=== PATIENT | female | born 1965 | race American Indian/Alaskan Native ===

== ENCOUNTER 2018-01-05 12:47 | Emergency (ER) | payer SELFPAY ==
[2018-01-05 13:05] VITALS: BP 141/78
--- NOTE | 2018-01-05 14:31 | Emergency Department Report ---
ED ENT HPI - General Chief complaint: Dental/Oral Stated complaint: TOOTH INFECTION Time Seen by Provider: 01/05/18 14:22 Source: patient Mode of arrival: Ambulatory Limitations: No Limitations - History of Present Illness Initial comments: Patient is a 52-year-old [place] female with 3 days of of right jaw swelling and pain. Patient states that she has a tooth that has not been feeling well for some time but the swelling and pain has intensified. Patient denies any problems swallowing or fevers chills nausea vomiting diarrhea at this time. Patient states pain is 8 out of 10 in severity. - Related Data Previous Rx's Medication Instructions Recorded Last Taken Type Aspirin [Aspirin BABY CHEW TAB] 81 mg PO QDAY #30 tab.chew 01/24/15 1 Week Ago Rx ~05/15/15 Ibuprofen [Motrin] 600 mg PO Q8H PRN #30 tablet 05/22/15 Unknown Rx traMADol [Ultram 50 MG tab] 50 mg PO Q6HR PRN #20 tablet 05/22/15 Unknown Rx HYDROcodone/APAP 5-325 [[place] 1 each PO Q6HR PRN #30 tablet 08/25/15 Unknown Rx 5/325] amLODIPine [Norvasc] 10 mg PO DAILY tablet 08/25/15 Unknown Rx levoFLOXacin [Levaquin TAB] 500 mg PO QDAY #10 tablet 08/25/15 Unknown Rx Clindamycin [Clindamycin CAP] 300 mg PO Q8H 7 Days cap 01/05/18 Unknown Rx HYDROcodone/APAP 5-325 [[place] 1 each PO Q4HR PRN #12 tablet 01/05/18 Unknown Rx 5/325] Ibuprofen [Motrin] 800 mg PO Q8HR PRN #20 tablet 01/05/18 Unknown Rx Allergies Allergy/AdvReac Type Severity Reaction Status Date / Time No Known Allergies Allergy Verified 08/24/15 17:34 ED Dental HPI - General Chief complaint: Dental/Oral Stated complaint: TOOTH INFECTION Time Seen by Provider: 01/05/18 14:22 Source: patient Mode of arrival: Ambulatory Limitations: No Limitations - Related Data Previous Rx's Medication Instructions Recorded Last Taken Type Aspirin [Aspirin BABY CHEW TAB] 81 mg PO QDAY #30 tab.chew 01/24/15 1 Week Ago Rx ~05/15/15 Ibuprofen [Motrin] 600 mg PO Q8H PRN #30 tablet 05/22/15 Unknown Rx traMADol [Ultram 50 MG tab] 50 mg PO Q6HR PRN #20 tablet 05/22/15 Unknown Rx HYDROcodone/APAP 5-325 [[place] 1 each PO Q6HR PRN #30 tablet 08/25/15 Unknown Rx 5/325] amLODIPine [Norvasc] 10 mg PO DAILY tablet 08/25/15 Unknown Rx levoFLOXacin [Levaquin TAB] 500 mg PO QDAY #10 tablet 08/25/15 Unknown Rx Clindamycin [Clindamycin CAP] 300 mg PO Q8H 7 Days cap 01/05/18 Unknown Rx HYDROcodone/APAP 5-325 [[place] 1 each PO Q4HR PRN #12 tablet 01/05/18 Unknown Rx 5/325] Ibuprofen [Motrin] 800 mg PO Q8HR PRN #20 tablet 01/05/18 Unknown Rx Allergies Allergy/AdvReac Type Severity Reaction Status Date / Time No Known Allergies Allergy Verified 08/24/15 17:34 ED Review of Systems ROS: Stated complaint: TOOTH INFECTION Other details as noted in HPI Comment: All other systems reviewed and negative ED Past Medical Hx - Past Medical History Hx Hypertension: Yes Hx CVA: Yes (01/2015) Hx HIV: No - Surgical History Additional Surgical History: c/s - Social History Smoking Status: Current Every Day Smoker Substance Use Type: None - Medications Home Medications: Home Medications Medication Instructions Recorded Confirmed Last Taken Type Aspirin [Aspirin BABY CHEW TAB] 81 mg PO QDAY #30 tab.chew 01/24/15 05/22/15 1 Week Ago Rx ~05/15/15 Ibuprofen [Motrin] 600 mg PO Q8H PRN #30 tablet 05/22/15 Unknown Rx traMADol [Ultram 50 MG tab] 50 mg PO Q6HR PRN #20 tablet 05/22/15 Unknown Rx HYDROcodone/APAP 5-325 [[place] 1 each PO Q6HR PRN #30 tablet 08/25/15 Unknown Rx 5/325] amLODIPine [Norvasc] 10 mg PO DAILY tablet 08/25/15 Unknown Rx levoFLOXacin [Levaquin TAB] 500 mg PO QDAY #10 tablet 08/25/15 Unknown Rx Clindamycin [Clindamycin CAP] 300 mg PO Q8H 7 Days cap 01/05/18 Unknown Rx HYDROcodone/APAP 5-325 [[place] 1 each PO Q4HR PRN #12 tablet 01/05/18 Unknown Rx 5/325] Ibuprofen [Motrin] 800 mg PO Q8HR PRN #20 tablet 01/05/18 Unknown Rx ED Physical Exam - General Limitations: No Limitations General appearance: alert, in no apparent distress - Head Head exam: Present: atraumatic, normocephalic - Eye Eye exam: Present: normal appearance - ENT ENT exam: Present: mucous membranes moist, other (patient has tenderness to palpation at the area of tooth 32. Patient is tooth is worn down to level of the gumline there is some necrosis. Patient has some facial cellulitis present as well) - Neck Neck exam: Present: normal inspection - Respiratory Respiratory exam: Present: normal lung sounds bilaterally. Absent: respiratory distress - Cardiovascular Cardiovascular Exam: Present: regular rate, normal rhythm. Absent: systolic murmur, diastolic murmur, rubs, gallop - GI/Abdominal GI/Abdominal exam: Present: soft, normal bowel sounds - Extremities Exam Extremities exam: Present: normal inspection - Back Exam Back exam: Present: normal inspection - Neurological Exam Neurological exam: Present: alert, oriented X3 - Psychiatric Psychiatric exam: Present: normal affect, normal mood - Skin Skin exam: Present: warm, dry, intact, normal color. Absent: rash ED Course Vital Signs 01/05/18 13:03 Temperature 98.7 F Pulse Rate 71 Respiratory 16 Rate Blood Pressure 141/78 O2 Sat by Pulse 100 Oximetry Critical care attestation.: If time is entered above; I have spent that time in minutes in the direct care of this critically ill patient, excluding procedure time. ED Disposition Clinical Impression: Facial cellulitis, Dental abscess Disposition: TO HOME OR SELFCARE Is pt being admited?: No Condition: Stable Instructions: Dental Abscess (ED) Additional Instructions: Please follow up with the dentist of your choice Referrals: PRIMARY CARE, [Primary Care Provider] - 3-5 Days Time of Disposition: 14:30
== END 2018-01-05 14:30 | disposition home or self-care (01) ==
LOC: ED 12:47
DX: L03.211 Cellulitis of face (principal); K04.7 Periapical abscess without sinus; I10 Essential (primary) hypertension; F17.200 Nicotine dependence, unspecified, uncomplicated; Z86.73 Personal history of transient ischemic attack (TIA), and cerebral infarction without residual deficits; Z79.899 Other long term (current) drug therapy
CPT/HCPCS: 99282

== ENCOUNTER 2020-10-29 11:45 | Emergency (ER) | payer SELFPAY ==
[2020-10-29 12:01] VITALS: BP 173/90
--- NOTE | 2020-10-29 14:30 | Emergency Department Report ---
Chief Complaint: Skin/Abscess/Foreign Body Stated Complaint: lump under arm Time Seen by Provider: 10/29/20 14:24 - HPI History of Present Illness: 55-year-old female patient presents to the emergency department with complaints of swelling in her left axillary region for 2 months. Symptoms are unchanged today. The area is not painful. There is no preceding fall, trauma, or injury. Patient has not consulted an outpatient provider for this concern. She has never undergone a mammogram. She has no known history of breast or ovarian cancer. Denies fever, chills, redness, warmth, purulent drainage. Denies all other complaints at this time. - ROS Review of Systems: GENERAL: Negative for fever. CARDIOVASCULAR: Negative for chest pain. PULMONARY: Negative for shortness of breath. GASTROINTESTINAL: Negative for abdominal pain. MUSCULOSKELETAL: Negative for back pain. NEUROLOGICAL: Negative for headache. INTEGUMENTARY: Positive for swelling. - Exam Vital Signs: Vital Signs 10/29/20 11:59 Temperature 98.2 F Pulse Rate 66 Respiratory 18 Rate Blood Pressure 173/90 [Right] O2 Sat by Pulse 100 Oximetry Physical Exam: General: Awake, appropriately interactive, no acute distress. Neck: Supple. Full range of motion intact. Cardiovascular: Normal peripheral perfusion. Pulmonary: No respiratory distress. Patient is speaking normally without use of accessory muscles. Skin: Oval-shaped firm subcutaneous mass to the left axillary/left upper quadrant of the left breast, non-mobile, non-tender, no overlying warmth or e rythema, no purulent drainage. Neurological: No facial asymmetry. Speech is clear. Follows commands. Patient is alert and oriented. Musculoskeletal: Moves all four extremities spontaneously with normal range of motion. Psych: Cooperative. Appropriate mood and affect. MSE screening note: Focused history and physical exam performed. Due to findings the following was ordered: ED Medical Decision Making - Medical Decision Making 55-year-old female patient presents to the emergency department for evaluation of painless swelling under her left arm for 2 months. She is afebrile. Vital signs are stable. There is no clinical evidence to suggest bacterial infection warranting further diagnostic work-up on an emergent basis at this time. Patient will be referred to both primary care provider and breast specialist in an effort to expedite arrangements for outpatient mammogram. Patient expressed understanding and is agreeable to plan of care. Strict return precautions provided. BILLING/CODING: This patient encounter does not represent a certified medical emergency. ED Disposition for MSE Clinical Impression: Left axillary swelling Disposition: MED SCREENING EXAM-LEFT Is pt being admited?: No Does the pt Need Aspirin: No Condition: Stable Instructions: Mammogram, Breast Self-Awareness, [id number] Additional Instructions: Follow-up with primary care provider and/or breast specialist for further evaluation. Call today to schedule an appointment. See referral information below. Return to the emergency department immediately for new or worsening symptoms. Referrals: RHYS MINOR MD [Staff Physician] - 3-[address] [facility] [Provider Group] - 3-5 Days LOBO MITCHELL MD [Staff Physician] - 3-5 Days Time of Disposition: 14:31
== END 2020-10-29 15:15 | disposition left against medical advice (07) ==
LOC: ED 11:45
DX: R22.32 Localized swelling, mass and lump, left upper limb (principal); R07.89 Other chest pain; Z53.21 Procedure and treatment not carried out due to patient leaving prior to being seen by health care provider

== ENCOUNTER 2021-03-09 12:21 | Inpatient (IN) | payer SELFPAY ==
[2021-03-09] MEDS ORDERED: hydrALAZINE 20 MG/1 ML INJ IV ONE ×2 (12:53→20:36)
--- NOTE | 2021-03-09 12:58 | Emergency Department Report ---
HPI - General Chief Complaint: Dizziness Time Seen by Provider: 03/09/21 12:44 - HPI HPI: 55-year-old -[place] female presents to the emergency department with complaint of a 2 to 3-day history of dizziness and some blurry vision. The patient says that it started after she ate some chips a few days ago. She realizes that they are were very salty and has concerned about her blood pressure. She does have a history of hypertension and does present with some elevated/uncontrolled blood pressure. The patient admits to medication noncompliance. She also has a history of a previous CVA without residual deficits. She also is a tobacco smoker. She denies any illicit drug use. She denies any facial asymmetry, weakness, chest pain, fever, numbness or paresthesias, slurred speech, shortness of breath. She describes the dizziness as if she might pass out when walking. No recent travel or sick contacts at home. The patient has not taken anything for symptoms prior to presentation today. ED Past Medical Hx - Past Medical History Previous Medical History?: Yes Hx Hypertension: Yes Hx CVA: Yes (01/2015) Hx HIV: No - Surgical History Past Surgical History?: Yes Additional Surgical History: c/s - Social History Smoking Status: Current Every Day Smoker Substance Use Type: None - Medications Home Medications: Home Medications Medication Instructions Recorded Confirmed Last Taken Type Aspirin [Aspirin BABY CHEW TAB] 81 mg PO QDAY #30 tab.chew 03/11/21 Unknown Rx AtorvaSTATin [Lipitor] 40 mg PO QHS #30 tab 03/11/21 Unknown Rx amLODIPine 10 mg PO DAILY #30 tablet 03/11/21 Unknown Rx carvediloL [Coreg] 6.25 mg PO BID #60 tablet 03/11/21 Unknown Rx ED Review of Systems ROS: Stated complaint: STUMBLING, CANT SEE, HIGH BLOOD PRESSURE Other details as noted in HPI Comment: All other systems reviewed and negative Constitutional: denies: chills, fever Eyes: vision change (blurry). denies: eye pain ENT: denies: ear pain, throat pain Respiratory: denies: cough, shortness of breath Cardiovascular: denies: chest pain, palpitations Gastrointestinal: denies: abdominal pain, vomiting Genitourinary: denies: dysuria, discharge Musculoskeletal: denies: back pain, arthralgia Skin: denies: rash, lesions Neurological: denies: weakness, numbness, paresthesias Physical Exam - Physical Exam Vital Signs: Vital Signs 03/09/21 12:32 Temperature 98.1 F Pulse Rate 67 Respiratory 16 Rate Blood Pressure 185/74 [Left] O2 Sat by Pulse 95 Oximetry Physical Exam: GENERAL: The patient is well-developed well-nourished. HENT: Normocephalic. Atraumatic. Patient has moist mucous membranes. EYES: Extraocular motions are intact. NECK: Supple. Trachea is midline. CHEST/LUNGS: Clear to auscultation. There is no respiratory distress noted. HEART/CARDIOVASCULAR: Regular. There is no tachycardia. There is no murmur. ABDOMEN: Abdomen is soft, nontender. Patient has normal bowel sounds. There is no abdominal distention. SKIN: Skin is warm and dry. NEURO: The patient is awake, alert, and oriented. The patient is cooperative. No facial asymmetry. No pronator drift or dysmetria. Normal speech. Unstable gait. MUSCULOSKELETAL: There is no tenderness or deformity. There is no limitation range of motion. ED Course Vital Signs 03/09/21 12:32 Temperature 98.1 F Pulse Rate 67 Respiratory 16 Rate Blood Pressure 185/74 [Left] O2 Sat by Pulse 95 Oximetry ED Medical Decision Making - Lab Data Result diagrams: 03/10/21 03:39 03/10/21 03:39 Lab Results 03/09/21 03/09/21 03/09/21 Range/Units 14:44 14:44 14:44 WBC 4.8 (4.5-11.0) K/mm3 RBC 3.52 L (3.65-5.03) M/mm3 Hgb 11.6 (10.1-14.3) gm/dl Hct 34.0 (30.3-42.9) % MCV 97 (79-97) fl MCH 33 H (28-32) pg MCHC 34 (30-34) % RDW 13.6 (13.2-15.2) % Plt Count 178 (140-440) K/mm3 Lymph % (Auto) 38.0 H (13.4-35.0) % [place] % (Auto) 9.7 H (0.0-7.3) % Eos % (Auto) 1.6 (0.0-4.3) % Baso % (Auto) 0.9 (0.0-1.8) % Lymph # (Auto) 1.8 (1.2-5.4) K/mm3 [place] # (Auto) 0.5 (0.0-0.8) K/mm3 Eos # (Auto) 0.1 (0.0-0.4) K/mm3 Baso # (Auto) 0.0 (0.0-0.1) K/mm3 Seg Neutrophils % 49.8 (40.0-70.0) % Seg Neutrophils # 2.4 (1.8-7.7) K/mm3 Sodium 140 (137-145) mmol/L Potassium 3.9 (3.6-5.0) mmol/L Chloride 105.5 (98-107) mmol/L Carbon Dioxide 24 (22-30) mmol/L Anion Gap 14 mmol/L BUN 11 (7-17) mg/dL Creatinine 0.8 (0.6-1.2) mg/dL Estimated GFR > 60 ml/min BUN/Creatinine Ratio 14 % Glucose 89 (65-100) mg/dL Calcium 9.2 (8.4-10.2) mg/dL Total Bilirubin 0.40 (0.1-1.2) mg/dL AST 9 (5-40) units/L ALT < 5 L (7-56) units/L Alkaline Phosphatase 74 (35-129) units/L Troponin T < 0.010 (0.00-0.029) ng/mL Total Protein 6.9 (6.3-8.2) g/dL Albumin 3.5 L (3.9-5) g/dL Albumin/Globulin Ratio 1.0 % TSH 0.996 (0.270-4.200) mlU/mL - EKG Data -: EKG Interpreted by Mt EKG shows normal: sinus rhythm, axis, intervals, QRS complexes (LVH), ST-T waves Rate: bradycardia (54 bpm) - EKG Data When compared to previous EKG there are: no significant change Interpretation: unchanged when compared t (08/25/15) - Radiology Data Radiology results: report reviewed CT HEAD WITHOUT CONTRAST INDICATION / CLINICAL INFORMATION: Dizziness. TECHNIQUE: All CT scans at this location are performed using CT dose reduction for ALARA by means of automated exposure control. COMPARISON: None available. FINDINGS: There is no acute intracranial hemorrhage, mass effect, or edema. No extra-axial collection or hydrocephalus. Hypodensity in the left basal ganglia extending into ahuja radiata compatible with chronic infarction. Additional tiny hypodensities in the right basal ganglia likely representing chronic lacunar infarcts as well. The paranasal sinuses and mastoid air cells are clear. Calvarium is intact. IMPRESSION: 1. No CT evidence of acute abnormality. 2. Chronic ischemic changes as above. CT angio neck INDICATION / CLINICAL INFORMATION: 55 years Female; Concern for posterior circulation CVA. TECHNIQUE: Thin cut axial images obtained through the head during IV bolus contrast administration. Sagittal, coronal, and 3 plane MIP reconstructions performed by the technologist. NASCET type criteria used evaluate stenoses. All CT scans at this location are performed using CT dose reduction for ALARA by means of automated exposure control. COMPARISON: None available. FINDINGS: CAROTID ARTERIES: The motion and beam hardening significantly degrades the image quality, unfortunately most prominent near the carotid bifurcations. However, there is no clear evidence of significant stenosis involving the carotid bifurcations are visualized proximal internal carotid arteries by NASCET criteria. The mid to distal ICAs are not included on this exam and will be evaluated on the CTA head. VERTEBRAL ARTERIES: There is no significant stenosis involving visualized cervical vertebral arteries. ARCH: There is mild calcification involving aortic arch. However, there is no signif icant stenosis of the arch vessels. ADDITIONAL FINDINGS: There are scattered a cervical lymph nodes, particularly along the jugular chains, greater on the right. Additionally, there are also nodes seen within the visualized mediastinum with a right paratracheal node measuring possibly 1 cm in short axis dimension. There also appears be more prominent nodes within the aortopulmonary window and correlation would be needed. IMPRESSION: The study is limited by motion. However, there is no clear CTA evidence of significant stenosis involving visualized cervical carotid or vertebral arteries by NASCET to criteria CT angio head INDICATION / CLINICAL INFORMATION: 55 years Female; Concern for posterior circulation CVA. TECHNIQUE: Thin cut axial images obtained through the head during IV bolus contrast administration. Sagittal, coronal, and 3 plane MIP reconstructions performed by the technologist. NASCET type criteria used evaluate stenoses. Automated exposure control utilized for radiation reduction purposes. COMPARISON: None available. FINDINGS: INTERNAL CAROTID ARTERIES: There is mild irregularity of the distal internal carotid arteries indicative of mild atherosclerotic disease. However, there is no significant focal stenosis by NASCET criteria. VERTEBROBASILAR SYSTEM: The vertebrobasilar system also demonstrates appropriate caliber without significant focal stenosis. CEREBRAL ARTERIES: There is no significant focal stenosis involving proximal cerebral arteries or adjacent segments. ANEURYSM: The findings appear most consistent with a prominent infundibulum of the right posterior to indicating artery measuring approximately 3 mm transversely. This finding is triangular in shape with the right posterior communicating artery emanating from the apex. The left posterior communicating artery is less well-defined though it there also appears to be developmental infundibulum. Otherwise, there is no clear CT evidence of intracranial aneurysm. 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 There is notable significant focal stenosis involving the posterior superior sagittal sinus at the level the parieto-occipital junction. IMPRESSION: There is no CTA evidence of large vessel occlusion. 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 - Medical Decision Making This patient presents with a 2-day history of some dizziness, feeling off balance when walking, blurry vision and a headache. She denies any slurred speech, numbness or paresthesias, focal weakness, chest pain, fever. On examination the patient initially has an NIH stroke scale of 0. She is outside of the window for TPA or even thrombectomy, so a code stroke was not initiated. However, later, when the patient was tested for ambulation, the patient has an unstable gait and has increased dizziness. Initially the patient has a very elevated blood pressure but it does come down to a more reasonable level without any antihypertensive medication given. CT of the head without contrast did not show any bleed, large vessel occlusion, or any other acute process. Labs thus far have been unremarkable including CBC, metabolic panel, negative troponin, and normal thyroid function. A CT angiography of the head and neck has been ord ered. This will be signed out to my colleague, Dr Tipton, to follow with the results and assist with disposition. The patient will be presented to the admitting hospitalist. Critical Care Time: No Critical care attestation.: If time is entered above; I have spent that time in minutes in the direct care of this critically ill patient, excluding procedure time. ED Disposition Clinical Impression: Tobacco use disorder, Noncompliance with medication regimen HTN (hypertension) Qualifiers: Hypertension type: unspecified Qualified Code(s): I10 - Essential (primary) hypertension CVA (cerebral vascular accident) Qualifiers: CVA mechanism: unspecified Qualified Code(s): I63.9 - Cerebral infarction, unspecified Disposition: 09 ADMITTED INPATIENT Is pt being admited?: Yes Condition: Serious - Assessment Assessment Interval: Baseline - Level of Consciousness 1a. Level of Consciousness: alert/keenly responsive - LOC Questions 1b. LOC Questions: answers both correctly - LOC Command 1c. LOC Commands: performs tasks correctly - Best Gaze 2. Best Gaze: normal - Visual 3. Visual: no visual loss - Facial Palsy 4. Facial Palsy: normal symmetrical movement - Motor Arm 5a. Motor Arm Left: no drift 5b. Motor Arm Right: no drift - Motor Leg 6a. Motor Leg Left: no drift 6b. Motor Leg Right: no drift - Limb Ataxia 7. Limb Ataxia: absent - Sensory 8. Sensory: normal - Best Language 9. Best Language: no aphasia - Dysarthria 10. Dysarthria: normal - Extinction and Inattention 11. Extinction/Inattention: no abnormality - Scoring Total Score: 0 Stroke Severity: No Stroke Symptoms
--- NOTE | 2021-03-09 14:33 | Cat Scan Report ---
CT HEAD WITHOUT CONTRAST INDICATION / CLINICAL INFORMATION: Dizziness. TECHNIQUE: All CT scans at this location are performed using CT dose reduction for ALARA by means of automated exposure control. COMPARISON: None available. FINDINGS: There is no acute intracranial hemorrhage, mass effect, or edema. No extra-axial collection or hydroc ephalus. Hypodensity in the left basal ganglia extending into ahuja radiata compatible with chronic infarction. Additional tiny hypodensities in the right basal ganglia likely representing chronic lacu jayro infarcts as well. The paranasal sinuses and mastoid air cells are clear. Calvarium is intact. IMPRESSION: 1. No CT evidence of acute abnormality. 2. Chronic ischemic changes as above. Signer Name: Jam Lott MD Signed: 03/09/2021 2:29 PM Workstation Name: [id number]
[2021-03-09 15:02] LABS: Basophils % (Auto) 0.9 % (0.0-1.8); Eosinophils # (Auto) 0.1 K/mm3 (0.0-0.4); Eosinophils % (Auto) 1.6 % (0.0-4.3); Hemoglobin 11.6 gm/dl (10.1-14.3); Lymphocytes # (Auto) 1.8 K/mm3 (1.2-5.4); Mean Corpuscular HGB Conc 34 % (30-34); Mean Corpuscular Volume 97 fl (79-97); Monocytes # (Auto) 0.5 K/mm3 (0.0-0.8); Monocytes % (Auto) 9.7 % (0.0-7.3); Platelet Count 178 K/mm3 (140-440); Red Blood Count 3.52 M/mm3 (3.65-5.03); Red Cell Distribution Width 13.6 % (13.2-15.2)
[2021-03-09] MEDS ORDERED: traMADol 50 MG TAB PO ONE (15:03)
[2021-03-09 15:16] LABS: Albumin 3.5 g/dL (3.9-5); BUN/Creatinine Ratio 14; Blood Urea Nitrogen 11 mg/dL (7-17); Calcium 9.2 mg/dL (8.4-10.2); Hemolysis Index 3
[2021-03-09 15:17] LABS: Alanine Aminotransferase < 5 units/L (7-56)
[2021-03-09] MEDS ORDERED: ASPIRIN 81 MG TAB CHEW PO ONE (15:34)
--- NOTE | 2021-03-09 17:48 | Cat Scan Report ---
CT angio neck INDICATION / CLINICAL INFORMATION: 55 years Female; Concern for posterior circulation CVA. TECHNIQUE: Thin cut axial images obtained through the head during IV bolus contrast administration. S agittal, coronal, and 3 plane MIP reconstructions performed by the technologist. NASCET type criteria used evaluate stenoses. All CT scans at this location are performed using CT dose reduction for ALAR A by means of automated exposure control. COMPARISON: None available. FINDINGS: CAROTID ARTERIES: The motion and beam hardening significantly degrades the image quality, unfortunate ly most prominent near the carotid bifurcations. However, there is no clear evidence of significant s tenosis involving the carotid bifurcations are visualized proximal internal carotid arteries by NASCE T criteria. The mid to distal ICAs are not included on this exam and will be evaluated on the CTA mitchella d. VERTEBRAL ARTERIES: There is no significant stenosis involving visualized cervical vertebral arteries . ARCH: There is mild calcification involving aortic arch. However, there is no significant stenosis of the arch vessels. ADDITIONAL FINDINGS: There are scattered a cervical lymph nodes, particularly along the jugular chain s, greater on the right. Additionally, there are also nodes seen within the visualized mediastinum wi th a right paratracheal node measuring possibly 1 cm in short axis dimension. There also appears be m ore prominent nodes within the aortopulmonary window and correlation would be needed. IMPRESSION: The study is limited by motion. However, there is no clear CTA evidence of significant stenosis invol ving visualized cervical carotid or vertebral arteries by NASCET to criteria. There was delay in the dictation of this exam in that the initial study was incomplete and was dictat ed on an emergent basis once corrected at 4:43 PM Central standard time. Signer Name: Ar Lorenzo MD Signed: 03/09/2021 5:44 PM Workstation Name: [id number]
--- NOTE | 2021-03-09 18:42 | Cat Scan Report ---
CT angio head INDICATION / CLINICAL INFORMATION: 55 years Female; Concern for posterior circulation CVA. TECHNIQUE: Thin cut axial images obtained through the head during IV bolus contrast administration. S agittal, coronal, and 3 plane MIP reconstructions performed by the technologist. NASCET type criteria used evaluate stenoses. Automated exposure control utilized for radiation reduction purposes. COMPARISON: None available. FINDINGS: INTERNAL CAROTID ARTERIES: There is mild irregularity of the distal internal carotid arteries indicat mainor of mild atherosclerotic disease. However, there is no significant focal stenosis by NASCET criter ia. VERTEBROBASILAR SYSTEM: The vertebrobasilar system also demonstrates appropriate caliber without sign ificant focal stenosis. CEREBRAL ARTERIES: There is no significant focal stenosis involving proximal cerebral arteries or adj acent segments. ANEURYSM: The findings appear most consistent with a prominent infundibulum of the right posterior to indicating artery measuring approximately 3 mm transversely. This finding is triangular in shape wit h the right posterior communicating artery emanating from the apex. The left posterior communicating artery is less well-defined though it there also appears to be developmental infundibulum. Otherwise, there is no clear CT evidence of intracranial aneurysm. 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 There is notable significant focal stenosis involving the posterior superior sa gittal sinus at the level the parieto-occipital junction. IMPRESSION: There is no CTA evidence of large vessel occlusion. 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 There was significant delay in the dictation of this exam in that the initial study was incomplete an d was dictated on an emergent basis at 5:36 PM once corrected. Signer Name: Ar Lorenzo MD Signed: 03/09/2021 6:37 PM Workstation Name: [id number]
[2021-03-09] MEDS ORDERED: ALUM-MAG HYDROXIDE-SIMETHICONE 200-200-20MG/5ML ORAL LIQD 30 ML PO PRN (21:06)
[2021-03-09] MEDS ORDERED: MORPHINE 2 MG/1 ML INJ IV PRN (21:06)
[2021-03-09] MEDS ORDERED: SENNOSIDES 8.6 MG TAB PO PRN (21:06)
[2021-03-09] MEDS ORDERED: oxyCODONE /ACETAMINOPHEN 5-325MG TAB PO PRN (21:06)
[2021-03-09] MEDS ORDERED: NALOXONE 0.4 MG/1 ML INJ IV PRN (21:06)
[2021-03-09] MEDS ORDERED: MAGNESIUM HYDROXIDE (MOM) ORAL LIQD UDC PO PRN (21:06)
[2021-03-09] MEDS ORDERED: MORPHINE 4 MG/1 ML INJ IV PRN (21:06)
[2021-03-09] MEDS ORDERED: traMADol 50 MG TAB PO PRN (21:09)
[2021-03-09] MEDS ORDERED: hydrALAZINE 20 MG/1 ML INJ IV PRN (21:10)
--- NOTE | 2021-03-09 21:15 | History and Physical Report ---
History of Present Illness Date of examination: 03/09/21 Date of admission: 03/09/21 Chief complaint: dizziness and light headedness History of present illness: This is a 55-year-old -[place] female seen in ED at bedside. She presents to the emergency department with complaint of a 2 to 3-day history of dizziness and some blurry vision. patient reports a history of hypertension and CVA and present with some elevated/uncontrolled blood pressure. Per ED record- patient says that it started after she ate some chips a few days ago. The patient admits to medication noncompliance, tobacco use,but denies chronic alcohol use and illicit drug use. She denies any facial asymmetry, weakness, chest pain, fever, numbness or paresthesias, slurred speech, shortness of breath. She describes the dizziness as if she might pass out when walking. CT of the neck showed no clear evidence of significant stenosis involving cervical carotid or ventral brawl arteries. CT of the head done which showed no CT evidence of acute abnormality but showed a chronic ischemic changes. Past History Past Medical History: hypertension, stroke Past Surgical History: No surgical history Social history: lives with family, smoking, full code. denies: alcohol abuse, prescription drug abuse, IV drug use Family history: no significant family history Medications and Allergies Allergies Allergy/AdvReac Type Severity Reaction Status Date / Time No Known Allergies Allergy Verified 08/24/15 17:34 Home Medications Medication Instructions Recorded Confirmed Last Taken Type Aspirin [Aspirin BABY CHEW TAB] 81 mg PO QDAY #30 tab.chew 01/24/15 05/22/15 1 Week Ago Rx ~05/15/15 Ibuprofen [Motrin] 600 mg PO Q8H PRN #30 tablet 05/22/15 Unknown Rx traMADoL [Ultram 50 MG tab] 50 mg PO Q6HR PRN #20 tablet 05/22/15 Unknown Rx HYDROcodone/APAP 5-325 [[place] 1 each PO Q6HR PRN #30 tablet 08/25/15 Unknown Rx 5/325] amLODIPine 10 mg PO DAILY tablet 08/25/15 Unknown Rx levoFLOXacin [Levaquin TAB] 500 mg PO QDAY #10 tablet 08/25/15 Unknown Rx Clindamycin [Clindamycin CAP] 300 mg PO Q8H 7 Days cap 01/05/18 Unknown Rx HYDROcodone/APAP 5-325 [[place] 1 each PO Q4HR PRN #12 tablet 01/05/18 Unknown Rx 5/325] Ibuprofen [Motrin] 800 mg PO Q8HR PRN #20 tablet 01/05/18 Unknown Rx Active Meds: Active Medications Acetaminophen (Acetaminophen 325 Mg Tab) 650 mg PO Q4H PRN PRN Reason: Pain MILD(1-3)/Fever >100.5/VASQUEZ Al Hydrox/Mg Hydrox/Simethicone (Alum-Mag Hydroxide-Simethicone 211-001-88vs/5ml Oral Liqd 30 Ml) 30 ml PO Q4H PRN PRN Reason: Indigestion Famotidine (Famotidine 20 Mg/2 Ml Inj) 20 mg IV BID RENARD Magnesium Hydroxide (Magnesium Hydroxide (Mom) Oral Liqd Udc) 30 ml PO Q4H PRN PRN Reason: Constipation Morphine Sulfate (Morphine 2 Mg/1 Ml Inj) 2 mg IV Q4H PRN PRN Reason: Pain, Moderate (4-6) Morphine Sulfate (Morphine 4 Mg/1 Ml Inj) 4 mg IV Q4H PRN PRN Reason: Pain , Severe (7-10) Naloxone HCl (Naloxone 0.4 Mg/1 Ml Inj) 0.1 mg IV Q2MIN PRN PRN Reason: Res Rate </= 8 or 02 SAT < 92% Oxycodone/Acetaminophen (Oxycodone /Acetaminophen 5-325mg Tab) 1 tab PO Q6H PRN PRN Reason: Pain, Moderate (4-6) Senna (Sennosides 8.6 Mg Tab) 8.6 mg PO Q12HR PRN PRN Reason: Constipation Sodium Chloride (Sodium Chloride 0.9% 10 Ml Flush Syringe) 10 ml IV BID RENARD Sodium Chloride (Sodium Chloride 0.9% 10 Ml Flush Syringe) 10 ml IV PRN PRN PRN Reason: LINE FLUSH Review of Systems Constitutional: fatigue, weakness, other (Dizziness) Eyes: right: blurred vision Ears, nose, mouth and throat: no epistaxis, no bleeding gums Cardiovascular: lightheadedness, high blood pressure, no chest pain, no orthopnea Respiratory: no congestion, no wheezing Gastrointestinal: no abdominal pain Rectal: no itching, no hemorrhoids Integumentary: no rash, no pruritis, no redness Neurological: no head injury Hematologic/Lymphatic: no easy bruising, no easy bleeding, no lymphadenopathy, no lymphedema Allergic/Immunologic: no urticaria, no allergic rhinitis Exam - Constitutional Vitals: Temp Pulse Resp BP Pulse Ox 98.5 F 70 18 188/80 99 03/09/21 20:35 03/09/21 20:44 03/09/21 20:35 03/09/21 20:44 03/09/21 20:35 General appearance: Present: mild distress, well-nourished - EENT Eyes: Present: PERRL ENT: hearing intact, clear oral mucosa - Neck Neck: Present: supple, normal ROM - Respiratory Respiratory effort: normal Respiratory: bilateral: CTA - Cardiovascular Heart Sounds: Present: S1 & S2. Absent: rub, click - Extremities Extremities: pulses symmetrical, No edema Peripheral Pulses: within normal limits - Abdominal General gastrointestinal: Present: soft, non-tender, non-distended, normal bowel sounds Female genitourinary: Present: normal - Integumentary Integumentary: Present: clear, warm, dry - Musculoskeletal Musculoskeletal: gait normal, strength equal bilaterally - Psychiatric Psychiatric: appropriate mood/affect, intact judgment & insight - Neurologic Neurologic: CNII-XII intact, moves all extremities - Allied Health Allied health notes reviewed: nursing, PT, ST HEART Score - HEART Score Troponin: Troponin T < 0.010 ng/mL (0.00-0.029) 03/09/21 14:44 Results - Labs CBC & Chem 7: 03/09/21 14:44 03/09/21 14:44 Labs: Abnormal lab results 03/09/21 03/09/21 Range/Units 14:44 14:44 RBC 3.52 L (3.65-5.03) M/mm3 MCH 33 H (28-32) pg Lymph % (Auto) 38.0 H (13.4-35.0) % [place] % (Auto) 9.7 H (0.0-7.3) % ALT < 5 L (7-56) units/L Albumin 3.5 L (3.9-5) g/dL Assessment and Plan - Patient Problems (1) HTN (hypertension) Current Visit: Yes Status: Chronic Plan to address problem: Monitor blood pressure Resume home antihypertensive As needed hydralazine (2) Noncompliance with medication regimen Current Visit: Yes Status: Acute Plan to address problem: Discussed the significant of compliancy with medical regimen Complications of noncompliance including explained to patient Patient voiced understanding (3) CVA (cerebral vascular accident) Current Visit: Yes Status: Acute Plan to address problem: History of CVA -no deficit noted Continue antiplatelet CT of the head showed no acute finding but showed evidence of old stroke (4) Tobacco use disorder Current Visit: Yes Status: Acute Plan to address problem: Discussed tobacco use cessation Cardiovascular and neoplasm syndrome of tobacco use explained to patient Patient voiced understanding (5) DVT prophylaxis Current Visit: No Status: Acute Plan to address problem: Subcutaneous Lovenox
[2021-03-09] MEDS: ASPIRIN 81 MG TAB CHEW PO SCH (21:52)
[2021-03-09] MEDS: FAMOTIDINE 20 MG/2 ML INJ IV SCH (21:55)
[2021-03-09] MEDS: amLODIPine 10 MG TAB PO SCH (21:55)
[2021-03-10] MEDS: ACETAMINOPHEN 325 MG TAB PO PRN ×2 (03:53→18:00)
[2021-03-10] MEDS: METOCLOPRAMIDE 10 MG/2 ML INJ IV PRN ×2 (04:00→18:04)
[2021-03-10 04:15] LABS: Basophils # (Auto) 0.1 K/mm3 (0.0-0.1); Basophils % (Auto) 0.7 % (0.0-1.8); Eosinophils # (Auto) 0.1 K/mm3 (0.0-0.4); Eosinophils % (Auto) 0.7 % (0.0-4.3); Hematocrit 34.6 % (30.3-42.9); Lymphocytes # (Auto) 2.7 K/mm3 (1.2-5.4); Lymphocytes % (Auto) 30.5 % (13.4-35.0); Mean Corpuscular HGB Conc 35 % (30-34); Mean Corpuscular Volume 96 fl (79-97); Monocytes # (Auto) 0.6 K/mm3 (0.0-0.8); Monocytes % (Auto) 7.2 % (0.0-7.3); Platelet Count 207 K/mm3 (140-440); Red Cell Distribution Width 13.8 % (13.2-15.2)
[2021-03-10 04:36] LABS: Albumin 3.8 g/dL (3.9-5); BUN/Creatinine Ratio 13; Blood Urea Nitrogen 10 mg/dL (7-17); Calcium 9.7 mg/dL (8.4-10.2); Hemolysis Index 5
[2021-03-10 04:38] LABS: Alanine Aminotransferase < 5 units/L (7-56)
[2021-03-10] MEDS: amLODIPine 10 MG TAB PO SCH (11:29)
[2021-03-10] MEDS: ASPIRIN 81 MG TAB CHEW PO SCH (11:29)
[2021-03-10] MEDS: ENOXAPARIN 40 MG/0.4 ML INJ SUB-Q SCH (11:30)
[2021-03-10] MEDS: FAMOTIDINE 20 MG/2 ML INJ IV SCH ×2 (11:30→22:07)
--- NOTE | 2021-03-10 14:41 | Progress Note ---
Assessment and Plan (1) HTN (hypertension) Current Visit: Yes Status: Chronic Plan to address problem: Monitor blood pressure Resume home antihypertensive As needed hydralazine (2) Noncompliance with medication regimen Current Visit: Yes Status: Acute Plan to address problem: Discussed the significant of compliancy with medical regimen Complications of noncompliance including explained to patient Patient voiced understanding (3) CVA (cerebral vascular accident) Current Visit: Yes Status: Acute Plan to address problem: History of CVA -no deficit noted Continue antiplatelet CT of the head showed no acute finding but showed evidence of old stroke (4) Tobacco use disorder Current Visit: Yes Status: Acute Plan to address problem: Discussed tobacco use cessation Cardiovascular and neoplasm syndrome of tobacco use explained to patient Patient voiced understanding (5) DVT prophylaxis Current Visit: No Status: Acute Plan to address problem: Subcutaneous Lovenox --03/10/21; This is a 55-year-old -[place] female presents to the emergency department with complaint of a 2 to 3-day history of dizziness and some blurry vision. Pending MRI, pending neuro evaluation. Continue to follow clinically. Subjective Date of service: 03/10/21 Interval history: Patient seen and examined. Medical records and medication list reviewed. No acute event overnight noted by the RN. Patient denies any chest pain or difficulty breathing. Patient continued to complains of lightheadedness and dizziness, patient is tolerating diet. Discussed plan of care at bedside with patient. Objective - Exam Narrative Exam: GENERAL: well-developed and well-nourished female lying on bed appeared to be in no discomfort. HEENT: Normocephalic. Atraumatic. No conjunctival congestion or icterus. Patient has moist mucous membranes. NECK: Supple. Trachea midline. CHEST/LUNGS: Clear to auscultated bilaterally, breathing nonlabored. No wheezes crackles or rhonchi. HEART/CARDIOVASCULAR: Regular in rate and rhythm. S1 and S2 positive. ABDOMEN: Abdomen is soft, nontender. Patient has normal bowel sounds. SKIN: There is no rash. Warm and dry. NEURO: No focal motor deficit. Follows command. MUSCULOSKELETAL: No joint effusion or tenderness. EXTRIMITY: No edema, no cyanosis or clubbing. PSYCH: Cooperative. - Constitutional Vitals: Vital Signs - 12hr 03/10/21 03/10/21 03/10/21 03:47 10: 11:29 Temperature 98.0 F Pulse Rate 57 L 98 H Respiratory 18 Rate Blood Pressure 165/69 O2 Sat by Pulse 97 99 Oximetry - Labs CBC & Chem 7: 03/10/21 03:39 03/10/21 03:39 Labs: Abnormal lab results 03/09/21 03/09/21 03/10/21 Range/Units 14:44 14:44 03:39 RBC 3.52 L 3.60 L (3.65-5.03) M/mm3 MCH 33 H 33 H (28-32) pg MCHC 35 H (30-34) % Lymph % (Auto) 38.0 H (13.4-35.0) % [place] % (Auto) 9.7 H (0.0-7.3) % ALT < 5 L (7-56) units/L Albumin 3.5 L (3.9-5) g/dL 03/10/21 Range/Units 03:39 RBC (3.65-5.03) M/mm3 MCH (28-32) pg MCHC (30-34) % Lymph % (Auto) (13.4-35.0) % [place] % (Auto) (0.0-7.3) % ALT < 5 L (7-56) units/L Albumin 3.8 L (3.9-5) g/dL HEART Score - HEART Score Troponin: Troponin T < 0.010 ng/mL (0.00-0.029) 03/09/21 14:44
--- NOTE | 2021-03-11 10:06 | Consultation ---
History of Present Illness Consult date: 03/11/21 Reason for Consult: Dizziness over 3 days History of present illness: dizziness and light headedness History of present illness: This is a 55-year-old -[place] female seen in ED at bedside. She presents to the emergency department with complaint of a 2 to 3-day history of dizziness and some blurry vision. patient reports a history of hypertension and CVA and present with some elevated/uncontrolled blood pressure. Per ED record- patient says that it started after she ate some chips a few days ago. The patient admits to medication noncompliance, tobacco use,but denies chronic alcohol use and illicit drug use. She denies any facial asymmetry, weakness, chest pain, fever, numbness or paresthesias, slurred speech, shortness of breath. She describes the dizziness as if she might pass out when walking. CT brain and CTA brain and neck showed no clear evidence of significant stenosis According to pt. 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 denies: alcohol abuse, prescription drug abuse, IV drug use Family history: no significant family history Medications and Allergies Allergies Allergy/AdvReac Type Severity Reaction Status Date / Time No Known Allergies Allergy Verified 08/24/15 17:34 Home Medications Medication Instructions Recorded Confirmed Last Taken Type Aspirin [Aspirin BABY CHEW TAB] 81 mg PO QDAY #30 tab.chew 01/24/15 05/22/15 1 Week Ago Rx ~05/15/15 Ibuprofen [Motrin] 600 mg PO Q8H PRN #30 tablet 05/22/15 Unknown Rx traMADoL [Ultram 50 MG tab] 50 mg PO Q6HR PRN #20 tablet 05/22/15 Unknown Rx HYDROcodone/APAP 5-325 [[place] 1 each PO Q6HR PRN #30 tablet 08/25/15 Unknown Rx 5/325] amLODIPine 10 mg PO DAILY tablet 08/25/15 Unknown Rx levoFLOXacin [Levaquin TAB] 500 mg PO QDAY #10 tablet 08/25/15 Unknown Rx Clindamycin [Clindamycin CAP] 300 mg PO Q8H 7 Days cap 01/05/18 Unknown Rx HYDROcodone/APAP 5-325 [[place] 1 each PO Q4HR PRN #12 tablet 01/05/18 Unknown Rx 5/325] Ibuprofen [Motrin] 800 mg PO Q8HR PRN #20 tablet 01/05/18 Unknown Rx Active Meds: Active Medications Acetaminophen (Acetaminophen 325 Mg Tab) 650 mg PO Q4H PRN PRN Reason: Pain MILD(1-3)/Fever >100.5/VASQUEZ Al Hydrox/Mg Hydrox/Simethicone (Alum-Mag Hydroxide-Simethicone 380-024-85xg/5ml Oral Liqd 30 Ml) 30 ml PO Q4H PRN PRN Reason: Indigestion Famotidine (Famotidine 20 Mg/2 Ml Inj) 20 mg IV BID RENARD Magnesium Hydroxide (Magnesium Hydroxide (Mom) Oral Liqd Udc) 30 ml PO Q4H PRN PRN Reason: Constipation Morphine Sulfate (Morphine 2 Mg/1 Ml Inj) 2 mg IV Q4H PRN PRN Reason: Pain, Moderate (4-6) Morphine Sulfate (Morphine 4 Mg/1 Ml Inj) 4 mg IV Q4H PRN PRN Reason: Pain , Severe (7-10) Naloxone HCl (Naloxone 0.4 Mg/1 Ml Inj) 0.1 mg IV Q2MIN PRN PRN Reason: Res Rate </= 8 or 02 SAT < 92% Oxycodone/Acetaminophen (Oxycodone /Acetaminophen 5-325mg Tab) 1 tab PO Q6H PRN PRN Reason: Pain, Moderate (4-6) Senna (Sennosides 8.6 Mg Tab) 8.6 mg PO Q12HR PRN PRN Reason: Constipation Sodium Chloride (Sodium Chloride 0.9% 10 Ml Flush Syringe) 10 ml IV BID RENARD Sodium Chloride (Sodium Chloride 0.9% 10 Ml Flush Syringe) 10 ml IV PRN PRN PRN Reason: LINE FLUSH Review of Systems Constitutional: fatigue, weakness, other (Dizziness) Eyes: right: blurred vision Ears, nose, mouth and throat: no epistaxis, no bleeding gums Cardiovascular: lightheadedness, high blood pressure, no chest pain, no orthopnea Respiratory: no congestion, no wheezing Gastrointestinal: no abdominal pain Rectal: no itching, no hemorrhoids Integumentary: no rash, no pruritis, no redness Neurological: no head injury Hematologic/Lymphatic: no easy bruising, no easy bleeding, no lymphadenopathy, no lymphedema Allergic/Immunologic: no urticaria, no allergic rhinitis Past History Past Medical History: hypertension, stroke Past Surgical History: No surgical history Social history: lives with family, smoking, full code. denies: alcohol abuse, prescription drug abuse, IV drug use Family history: no significant family history Medications and Allergies Allergies Allergy/AdvReac Type Severity Reaction Status Date / Time codeine AdvReac Dizziness Verified 03/11/21 09:03 Home Medications Medication Instructions Recorded Confirmed Last Taken Type amLODIPine 10 mg PO DAILY tablet 08/25/15 03/11/21 03/08/21 Rx Acetaminophen [Non-Aspirin Extra 500 mg PO PRN PRN 03/11/21 03/11/21 03/08/21 History Strength] diphenhydrAMINE [Benadryl CAP] 25 mg PO PRN PRN 03/11/21 03/11/21 03/05/21 History Active Meds: Active Medications Acetaminophen (Acetaminophen 325 Mg Tab) 650 mg PO Q4H PRN PRN Reason: Pain MILD(1-3)/Fever >100.5/VASQUEZ Last Admin: 03/10/21 18:00 Dose: 650 mg Documented by: Al Hydrox/Mg Hydrox/Simethicone (Alum-Mag Hydroxide-Simethicone [phone]/5ml Oral Liqd 30 Ml) 30 ml PO Q4H PRN PRN Reason: Indigestion Amlodipine Besylate (Amlodipine 10 Mg Tab) 10 mg PO DAILY [facility] Last Admin: 03/10/21 11:29 Dose: 10 mg Documented by: Aspirin (Aspirin 81 Mg Tab Chew) 81 mg PO QDAY [facility] Last Admin: 03/10/21 11:29 Dose: 81 mg Documented by: Enoxaparin Sodium (Enoxaparin 40 Mg/0.4 Ml Inj) 40 mg SUB-Q QDAY [facility] Last Admin: 03/10/21 11:30 Dose: 40 mg Documented by: Famotidine (Famotidine 20 Mg/2 Ml Inj) 20 mg IV BID [facility] Last Admin: 03/10/21 22:07 Dose: 20 mg Documented by: Hydralazine HCl (Hydralazine 20 Mg/1 Ml Inj) 5 mg IV Q4HR PRN PRN Reason: Hypertension Last Admin: 03/10/21 17:55 Dose: 5 mg Documented by: Magnesium Hydroxide (Magnesium Hydroxide (Mom) Oral Liqd Udc) 30 ml PO Q4H PRN PRN Reason: Constipation Metoclopramide HCl (Metoclopramide 10 Mg/2 Ml Inj) 10 mg IV Q6H PRN PRN Reason: Nausea And Vomiting Last Admin: 03/10/21 18:04 Dose: 10 mg Documented by: Morphine Sulfate (Morphine 2 Mg/1 Ml Inj) 2 mg IV Q4H PRN PRN Reason: Pain, Moderate (4-6) Last Admin: 03/10/21 04:00 Dose: 2 mg Documented by: Naloxone HCl (Naloxone 0.4 Mg/1 Ml Inj) 0.1 mg IV Q2MIN PRN PRN Reason: Res Rate </= 8 or 02 SAT < 92% Oxycodone/Acetaminophen (Oxycodone /Acetaminophen 5-325mg Tab) 1 tab PO Q6H PRN PRN Reason: Pain, Moderate (4-6) Senna (Sennosides 8.6 Mg Tab) 8.6 mg PO Q12HR PRN PRN Reason: Constipation Sodium Chloride (Sodium Chloride 0.9% 10 Ml Flush Syringe) 10 ml IV BID RENARD Last Admin: 03/10/21 22:07 Dose: 10 ml Documented by: Sodium Chloride (Sodium Chloride 0.9% 10 Ml Flush Syringe) 10 ml IV PRN PRN PRN Reason: LINE FLUSH Last Admin: 03/10/21 04:00 Dose: 10 ml Documented by: Physical Examination - Vital Signs Vital Signs: Vital Signs Temp Pulse Resp BP Pulse Ox 98.1 F 67 16 185/74 95 03/09/21 12:32 03/09/21 12:32 03/09/21 12:32 03/09/21 12:32 03/09/21 12:32 - Constitutional General appearance: comfortable - EENT EENT: Present: PERRL, mucous membranes moist - Respiratory Respiratory: Present: chest non-tender, lungs clear, rhonchi - Cardiovascular Cardiovascular: Present: regular rate, normal S1, normal S2 Extremities: Present: no peripheral edema bilatateraly, no clubbing, cyanosis - Gastrointestinal Gastrointestinal: Present: normoactive bowel sounds - Integumentary Integumentary: Present: normal - Neurologic Cranial nerve examination: intact Speech examination: intact Sensorimotor examination: intact Detailed motor examination: grossly full strength in - Level of Consciousness 1a. Level of Consciousness: alert/keenly responsive - LOC Questions 1b. LOC Questions: answers both correctly - LOC Command 1c. LOC Commands: performs tasks correctly - Best Gaze 2. Best Gaze: normal - Visual 3. Visual: no visual loss - Facial Palsy 4. Facial Palsy: normal symmetrical movement - Motor Arm 5a. Motor Arm Left: no drift 5b. Motor Arm Right: no drift - Motor Leg 6a. Motor Leg Left: no drift 6b. Motor Leg Right: no drift - Limb Ataxia 7. Limb Ataxia: absent - Sensory 8. Sensory: normal - Best Language 9. Best Language: no aphasia - Dysarthria 10. Dysarthria: normal - Extinction and Inattention 11. Extinction/Inattention: no abnormality - Scoring Total Score: 0 Stroke Severity: No Stroke Symptoms Results - Laboratory Findings CBC and BMP: 03/10/21 03:39 03/10/21 03:39 Abnormal Lab Findings: Abnormal Labs 03/09/21 03/09/21 03/10/21 14:44 14:44 03:39 RBC 3.52 L 3.60 L MCH 33 H 33 H MCHC 35 H Lymph % (Auto) 38.0 H [place] % (Auto) 9.7 H ALT < 5 L Albumin 3.5 L 03/10/21 03:39 RBC MCH MCHC Lymph % (Auto) [place] % (Auto) ALT < 5 L Albumin 3.8 L Assessment and Plan Assessment and Plan #pt. is with 3 days Hx of dizziness none specific and is associted with blurred vision -CVA work up is unremarkable for acute event -History of CVA -no deficit noted -NONE complying with BP medication or antiplatlet agent -CT of the head showed remote bilateral BG lacunar infarct -MRI brain is remarkable for left BG and ahuja radiata infarct remote -CTA brain and neck are unrevealing # HTN (hypertension) -poorly controlled initial BP #176/70 -Monitor blood pressure -Resume home antihypertensive -As needed hydralazine # Noncompliance with medication regimen -Discussed the significant of compliancy with medical regimen -Patient voiced understanding # Tobacco use disorder -Discussed tobacco use cessation -Cardiovascular and neoplasm syndrome of tobacco use explained to patient -Patient voiced understanding # pt. is concerned about left axilla LN swelling -recommend keep appointment with her Mobile Practice Lead # DVT prophylaxis Subcutaneous Lovenox PLAN 1- Comply with BP medication,ASA 81 mg daily 2-Lipitor 40 mg daily and check Lipid profil 3- Review echo 4- keep appointment with Gynecology will sign off
--- NOTE | 2021-03-11 11:24 | Magnetic Resonance Report ---
MR brain wo con INDICATION / CLINICAL INFORMATION: dizziness. TECHNIQUE: Multiplanar, multisequence MR images of the brain were obtained. COMPARISON: CT head 03/09/2021. Prior MRI would not load. FINDINGS: INTRACRANIAL: Small left remote infarction in the left putamen and ahuja radiata. No restricted diff usion. No hemorrhage. Ventricular caliber is normal. No extra-axial collection. No mass. No herniati on. Major intracranial vascular flow voids are preserved. Small scattered T2 signal hyperintensity se en within the basal ganglia and periventricular white matter. ORBITS: No significant abnormality of visualized orbits. SINUSES / MASTOIDS: Because retention cysts in the alveolar recesses of the maxillary sinuses. Otherw ise the paranasal sinuses and mastoid air cells are essentially clear. ADDITIONAL FINDINGS: None. IMPRESSION: 1. No acute abnormality. 2. Remote left putamen and ahuja radiata infarction. Mild sequela of chronic microvascular disease. Signer Name: Ean Tang MD Signed: 03/11/2021 11:20 AM Workstation Name: [id number]
[2021-03-11] MEDS: ENOXAPARIN 40 MG/0.4 ML INJ SUB-Q SCH (13:57)
[2021-03-11] MEDS: amLODIPine 10 MG TAB PO SCH (13:57)
[2021-03-11] MEDS: ASPIRIN 81 MG TAB CHEW PO SCH (13:57)
[2021-03-11] MEDS: FAMOTIDINE 20 MG/2 ML INJ IV SCH (13:58)
--- NOTE | 2021-03-11 15:39 | Discharge Summary ---
Providers - Providers Date of Admission: 03/09/21 21:06 Date of discharge: 03/11/21 Attending physician: CALI DARDEN 03/11/21 09:10 Consult to Physician [CONS] Stat Comment: Consulting Provider: LISBETH ROMO Physician Instructions: Reason For Exam: dizziness Primary care physician: ADULT NEUROLOGIST Hospitalization Condition: Serious Hospital course: This is a 55-year-old -[place] female with a history of hypertension and CVA presents to the emergency department with complaint of a 2 to 3-day history of dizziness and some blurry vision. The patient admits to medication noncompliance, tobacco use,but denies chronic alcohol use and illicit drug use. CT brain and CTA brain and neck showed no clear evidence of significant stenosis According to pt. she is not taking ASA or Lipitor and not complying with her BP medications She continue to smoke 1/2 PPD MRI brain is remarkable for left BG and ahuja radiata remote infarct Her BP was poorly controlled with initial reading #185/74 Her BP medications were adjusted and her symptom improved Neurology recommended outpatient follow-up and cleared for discharge Patient was then discharged home in stable condition with outpatient follow-up Disposition: 01 HOME / SELF CARE / HOMELESS Final Discharge Diagnosis (Prints w/discharge instructions): --HTNsive urgency. --h/o CVA. --dizziness due to uncontrolled BP Time spent for discharge: 34 minutes Core Measure Documentation - Palliative Care Palliative Care/ Comfort Measures: Not Applicable - Core Measures Any of the following diagnoses?: stroke - Heart Failure Discharge Requirements QUINTIN/ARB for LVSD if EF <40%: Not Applicable Beta aaron at discharge: Yes - Stroke Discharge Requirements Statin for LDL = or >70 mg/dl on DC: Yes Anticoag for atrial fib/atrial flutter: Not Applicable Antithrombotic for ischemic stroke: Yes Exam - Physical Exam Narrative exam: GENERAL: well-developed and well-nourished female lying on bed appeared to be in no discomfort. HEENT: Normocephalic. Atraumatic. No conjunctival congestion or icterus. Patient has moist mucous membranes. NECK: Supple. Trachea midline. CHEST/LUNGS: Clear to auscultated bilaterally, breathing nonlabored. No wheezes crackles or rhonchi. HEART/CARDIOVASCULAR: Regular in rate and rhythm. S1 and S2 positive. ABDOMEN: Abdomen is soft, nontender. Patient has normal bowel sounds. SKIN: There is no rash. Warm and dry. NEURO: No focal motor deficit. Follows command. MUSCULOSKELETAL: No joint effusion or tenderness. EXTRIMITY: No edema, no cyanosis or clubbing. PSYCH: Cooperative. - Constitutional Vitals: Temp Pulse Resp BP Pulse Ox 98.1 F 76 16 173/79 99 03/11/21 13:33 03/11/21 13:57 03/11/21 13:33 03/11/21 13:33 03/11/21 04:22 Plan Activity: advance as tolerated Weight Bearing Status: Weight Bear as Tolerated Diet: low fat, low salt Additional Instructions: 2d echo as outpt Follow up with: PRIMARY CAREMD [Primary Care Provider] - 7 Days SID SINHA MD [Staff Physician] - 7 Days Prescriptions: AtorvaSTATin [Lipitor] 40 mg PO QHS #30 tab amLODIPine 10 mg PO DAILY #30 tablet Aspirin [Aspirin BABY CHEW TAB] 81 mg PO QDAY #30 tab.chew carvediloL [Coreg] 6.25 mg PO BID #60 tablet
[2021-03-11] MEDS ORDERED: carvediloL 6.25 MG TAB PO SCH (16:00)
[2021-03-11 17:20] VITALS: BP 163/66
--- NOTE | 2021-03-14 10:02 | Electrocardiograph Report ---
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
== END 2021-03-11 17:49 | disposition home or self-care (01) | DRG 305 ==
LOC: ED 12:21 → 4A 21:06
PROVIDERS: ADMIT Internal Medicine Geriatric Medicine; ATTEND Internal Medicine
DX: I16.0 Hypertensive urgency (principal); I10 Essential (primary) hypertension; F17.200 Nicotine dependence, unspecified, uncomplicated; Z91.14 Patient's other noncompliance with medication regimen
CPT/HCPCS: 36415; 70450; 70496; 70498; 70551; 80053; 83036; 84443; 84484; 85025; 93005; G0378; J0360; J1650; J2270; J2765; Q9967

== ENCOUNTER 2021-11-12 20:57 | Emergency (ER) | payer SELFPAY ==
[2021-11-13] MEDS ORDERED: dexAMETHasone 4 MG/ML VIAL PO ONE (08:07)
[2021-11-13] MEDS ORDERED: diphenhydrAMINE 25 MG CAP PO ONE (08:07)
[2021-11-13] MEDS ORDERED: KETOROLAC 10 MG TAB PO ONE (08:07)
[2021-11-13] MEDS ORDERED: ONDANSETRON 4 MG ODT TAB PO ONE (08:08)
--- NOTE | 2021-11-13 08:51 | XRay Report ---
CHEST 2 VIEWS INDICATION / CLINICAL INFORMATION: congestion, fever, cough. COMPARISON: None available. FINDINGS: SUPPORT DEVICES: None. HEART / MEDIASTINUM: No significant abnormality. LUNGS / PLEURA: No significant pulmonary or pleural abnormality. No pneumothorax. ADDITIONAL FINDINGS: Mild curvature the spine IMPRESSION: 1. No acute findings. Signer Name: Giovanny Gotti MD Signed: 11/13/2021 8:47 AM Workstation Name: [id number]
--- NOTE | 2021-11-13 09:08 | Emergency Department Report ---
- General Chief Complaint: Fever Stated Complaint: VASQUEZ, BODYACHES Time Seen by Provider: 11/13/21 07:45 Source: patient Mode of arrival: Ambulatory Limitations: No Limitations - History of Present Illness Initial Comments: 56-year-old black female with a past medical history of hypertension presents to the emergency department for evaluation of 1 day history of body aches, headach e, cough, congestion, and nausea. She states that symptoms started yesterday morning and later in the evening she started to develop low-grade fever. She also complains of not to her left breast that has been there for over a year. She also requests refill of her blood pressure medications. She denies chest pain, dizziness, and diaphoresis but states that she has had some intermittent shortness of breath. She states that pain is worse is 6 out of 10, and she has not taken any medication for symptoms. MD Complaint: fever, cough, rhinorrhea, nasal congestion -: Gradual, days(s) Severity: moderate (1) Severity scale (0 -10): 6 Quality: aching Consistency: constant Associated Symptoms: fever, headache, rhinorrhea, nasal congestion, sore throat, cough, shortness of breath. denies: chills, myalgias, diaphoresis, stiff neck, chest pain, abdominal pain, nausea, diarrhea, dysuria, rash, confusion, hoarseness, ear pain Treatments Prior to Arrival: none - Related Data Previous Rx's Medication Instructions Recorded Last Taken Type Aspirin [Aspirin BABY CHEW TAB] 81 mg PO QDAY #30 tab.chew 03/11/21 Unknown Rx AtorvaSTATin [Lipitor] 40 mg PO QHS #30 tab 03/11/21 Unknown Rx amLODIPine 10 mg PO DAILY #30 tablet 03/11/21 Unknown Rx carvediloL [Coreg] 6.25 mg PO BID #60 tablet 03/11/21 Unknown Rx Benzonatate [Tessalon Perles] 100 mg PO Q8HR #21 cap 11/13/21 Unknown Rx Ondansetron [Zofran Odt] 4 mg PO Q8HR PRN #12 tab.rapdis 11/13/21 Unknown Rx amLODIPine 10 mg PO DAILY #30 tab 11/13/21 Unknown Rx Allergies Allergy/AdvReac Type Severity Reaction Status Date / Time codeine AdvReac Dizziness Verified 03/11/21 09:03 ED Review of Systems ROS: Stated complaint: VASQUEZ, BODYACHES Other details as noted in HPI Comment: All other systems reviewed and negative Constitutional: fever. denies: chills, diaphoresis, malaise, weakness Eyes: denies: eye pain, vision change ENT: throat pain, congestion. denies: ear pain Respiratory: cough, shortness of breath. denies: SOB with exertion, SOB at rest, stridor, wheezing Cardiovascular: denies: chest pain, palpitations, dyspnea on exertion, orthopnea, edema, syncope, paroxysmal nocturnal dyspnea Gastrointestinal: denies: abdominal pain, nausea, vomiting Genitourinary: denies: urgency, dysuria, frequency, hematuria, discharge Musculoskeletal: denies: back pain Skin: denies: rash, lesions Neurological: headache. denies: weakness, numbness, paresthesias, confusion, abnormal gait ED Past Medical Hx - Past Medical History Hx Hypertension: Yes Hx CVA: Yes (01/2015) Hx HIV: No - Surgical History Additional Surgical History: c/s - Social History Smoking Status: Current Every Day Smoker Substance Use Type: None - Medications Home Medications: Home Medications Medication Instructions Recorded Confirmed Last Taken Type Aspirin [Aspirin BABY CHEW TAB] 81 mg PO QDAY #30 tab.chew 03/11/21 Unknown Rx AtorvaSTATin [Lipitor] 40 mg PO QHS #30 tab 03/11/21 Unknown Rx amLODIPine 10 mg PO DAILY #30 tablet 03/11/21 Unknown Rx carvediloL [Coreg] 6.25 mg PO BID #60 tablet 03/11/21 Unknown Rx Benzonatate [Tessalon Perles] 100 mg PO Q8HR #21 cap 11/13/21 Unknown Rx Ondansetron [Zofran Odt] 4 mg PO Q8HR PRN #12 tab.rapdis 11/13/21 Unknown Rx amLODIPine 10 mg PO DAILY #30 tab 11/13/21 Unknown Rx ED Physical Exam - General Limitations: No Limitations General appearance: alert, in no apparent distress - Head Head exam: Present: atraumatic, normocephalic - Eye Eye exam: Present: normal appearance. Absent: conjunctival injection - ENT ENT exam: Present: TM's normal bilaterally. Absent: normal exam (Bilateral nasal mucosal edema), normal orophraynx (Erythema noted to posterior oropharynx) - Expanded ENT Exam Expanded Throat exam: Negative: tonsillar erythema, tonsillomegaly, tonsillar exudate, R peritonsillar mass, L peritonsillar mass - Neck Neck exam: Present: normal inspection, full ROM. Absent: tenderness, lymphadenopathy - Respiratory Respiratory exam: Present: normal lung sounds bilaterally. Absent: respiratory distress, wheezes, rales, rhonchi, stridor, chest wall tenderness - Cardiovascular Cardiovascular Exam: Present: regular rate, normal heart sounds - Expanded Cardiovascular Exam Expanded 1 - noted to have firm mass to area that is nontender nonerythematous and no drainage noted. - GI/Abdominal GI/Abdominal exam: Present: soft. Absent: distended, tenderness, guarding, rebound, rigid, normal bowel sounds - Extremities Exam Extremities exam: Present: normal inspection, normal capillary refill. Absent: pedal edema, joint swelling, calf tenderness - Back Exam Back exam: Present: normal inspection. Absent: CVA tenderness (R), CVA tenderness (L), vertebral tenderness - Neurological Exam Neurological exam: Present: alert, oriented X3, CN II-XII intact, normal gait - Psychiatric Psychiatric exam: Present: normal affect, normal mood - Skin Skin exam: Present: warm, dry, intact, normal color ED Course Vital Signs 11/12/21 11/13/21 21:34 07:45 Temperature 99.8 F H 98.5 F Pulse Rate 68 78 Respiratory 18 16 Rate Blood Pressure 184/71 Blood Pressure 127/93 [Left] O2 Sat by Pulse 98 100 Oximetry - Reevaluation(s) Reevaluation #1: 11/13/21 09:46 Patient stated that she felt better after receiving medication. ED Medical Decision Making - Radiology Data Radiology results: report reviewed, image reviewed Chest x-ray: FINDINGS: SUPPORT DEVICES: None. HEART / MEDIASTINUM: No significant abnormality. LUNGS / PLEURA: No significant pulmonary or pleural abnormality. No pneumothorax. ADDITIONAL FINDINGS: Mild curvature the spine IMPRESSION: 1. No acute findings. - Medical Decision Making 56-year-old black female with a past medical history of hypertension presents to the emergency department for evaluation of 1 day history of body aches, headache, cough, congestion, and nausea. She states that symptoms started yesterday morning and later in the evening she started to develop low-grade fever. She also complains of not to her left breast that has been there for over a year. She also requests refill of her blood pressure medications. She denies chest pain, dizziness, and diaphoresis but states that she has had some intermittent shortness of breath. She states that pain is worse is 6 out of 10, and she has not taken any medication for symptoms. Chest x-ray without any acute abnormalities noted. Physical exam unremarkable patient will be treated for URI/viral syndrome with Tessalon Perles to use for cough and Zofran to use as needed for nausea. Patient was given refill of amlodipine to use daily for hypertension as previously prescribed. She was advised to follow-up with her primary care provider in or [facility] as soon as possible to schedule a mammogram for further evaluation and management of left breast mass. She was given resources of places to go for non-insured patients also. She was advised to return to the emergency department as needed. She calvin balizes understanding of and agreement with plan of care. Critical care attestation.: If time is entered above; I have spent that time in minutes in the direct care of this critically ill patient, excluding procedure time. ED Disposition Clinical Impression: URI with cough and congestion, Medication refill Breast mass, left Qualifiers: Breast mass location: axillary tail Qualified Code(s): N63.32 - Unspecified lump in axillary tail of the left breast Disposition: 01 HOME / SELF CARE / HOMELESS Is pt being admited?: No Does the pt Need Aspirin: No Condition: Stable Instructions: Upper Respiratory Infection, Adult, [id number], Breast Self- Awareness Additional Instructions: Take medications as prescribed. Follow-up with your primary care provider if no improvement or worsening symptoms. Return to the emergency department as needed. Prescriptions: amLODIPine 10 mg PO DAILY #30 tab Benzonatate [Tessalon Perles] 100 mg PO Q8HR #21 cap Ondansetron [Zofran Odt] 4 mg PO Q8HR PRN #12 tab.rapdis PRN Reason: Nausea And Vomiting Referrals: RHYS MINOR MD [Primary Care Provider] - 3-5 Days [facility] [Outside] - 3-5 Days [facility] [Outside] - 3-[address] [facility] [Outside] - 3-5 Days Time of Disposition: 09:10
[2021-11-13 10:00] VITALS: BP 125/86
== END 2021-11-13 10:00 | disposition home or self-care (01) ==
LOC: ED 20:57
DX: J06.9 Acute upper respiratory infection, unspecified (principal); R05.9 Cough, unspecified; R68.89 Other general symptoms and signs; N63.32 Unspecified lump in axillary tail of the left breast; I10 Essential (primary) hypertension; Z86.73 Personal history of transient ischemic attack (TIA), and cerebral infarction without residual deficits; Z98.890 Other specified postprocedural states; Z88.5 Allergy status to narcotic agent
CPT/HCPCS: 71046; 99283; J1100; J3490; Q0162